=== PATIENT | female | born 1965 | race Caucasian/White ===

== ENCOUNTER → 2025-03-19 12:44 | Outpatient (REF) | payer OTHER, SELFPAY | LOC: WDC 12:44 | PROVIDERS: ATTENDING PHYSICIAN Internal Medicine | DX: Z12.31 Encounter for screening mammogram for malignant neoplasm of breast (principal) | CPT/HCPCS: 77063; 77067 ==

== ENCOUNTER 2025-03-22 06:21 | Day surgery (SDC) | payer OTHER, SELFPAY | END 2025-03-22 10:48 | disposition home or self-care (01) | LOC: GI 06:21 | PROVIDERS: ATTENDING PHYSICIAN Internal Medicine Gastroenterology | DX: R12 Heartburn (principal); K22.89 Other specified disease of esophagus | CPT/HCPCS: 43239; 88305 ==